=== PATIENT | male | born 1960 | race Caucasian/White ===

== ENCOUNTER → 2020-07-26 | Outpatient (CLI) | payer BC | END | disposition home or self-care (01) | LOC: COVID19 00:29 | PROVIDERS: ATTEND Dentist General Practice | DX: Z20.828 Contact with and (suspected) exposure to other viral communicable diseases (principal) ==

== ENCOUNTER → 2020-07-30 | Outpatient (CLI) | payer BC | END | disposition home or self-care (01) | LOC: RAD 09:43 | PROVIDERS: ATTEND Nurse Practitioner Family | DX: M19.071 Primary osteoarthritis, right ankle and foot (principal); M85.471 Solitary bone cyst, right ankle and foot ==

== ENCOUNTER 2020-09-19 12:47 | Emergency (ER) | payer BC ==
[~2020-09-19] VITALS: Ht 172.7 cm; Wt 93.0 kg
== END 2020-09-19 14:30 | disposition home or self-care (01) ==
LOC: ED 12:47
DX: S61.217A Laceration without foreign body of left little finger without damage to nail, initial encounter (principal); X58.XXXA Exposure to other specified factors, initial encounter; Y93.89 Activity, other specified; Y92.89 Other specified places as the place of occurrence of the external cause; Y99.8 Other external cause status